=== PATIENT | male | born 1950 | race Caucasian/White ===

== ENCOUNTER → 2017-12-02 10:07 | Outpatient (CLI) | payer MEDICARE, OTHER, SELFPAY ==
[2017-12-02 11:55] LABS: Hematocrit 41.5 % (40-54); Hemoglobin 13.6 g/dl (13.0-16.5); Mean Corp Hgb Conc 32.8 g/gl (32-36); Mean Corpuscular Volume 91.6 fL (80-94); Platelet Count 209 K/mm3 (150-450); RBC Distribution Width CV 12.6 % (11.6-14.6); Red Blood Count 4.53 M/mm3 (4.6-6.2); White Blood Count 4.4 K/mm3 (4.4-11.0)
[2017-12-02 11:56] LABS: Scan Indicated on CBC? Y/N NO
[2017-12-02 12:12] LABS: Anion Gap 8 (5-15); BUN 17 mg/dL (7-18); BUN/Creat Ratio 20.7 RATIO (10-20); Calcium,Total 9.1 mg/dL (8.5-10.1); Chloride 105 mmol/L (98-107); Creatinine, Serum 0.82 mg/dL (0.70-1.30); EST Glomerular Filtration Rate 100 mL/min (>60); Est Glom Filt Rate - Afr Amer 121 mL/min (>60); Glucose 87 mg/dL (74-106); Potassium 4.1 mmol/L (3.5-5.1); Sodium Level 141 mmol/L (136-145)
== END ==
PROVIDERS: Family Provider Family Medicine; PCP Family Medicine; Visit Provider Orthopaedic Surgery
DX: Z01.818 Encounter for other preprocedural examination (principal)
CPT/HCPCS: 36415; 80048; 85027

== ENCOUNTER 2023-09-26 10:58 | Observation (INO) | payer MEDICARE, OTHER, SELFPAY ==
--- NOTE | 2023-09-02 09:19 | EKG12_ITS ---
Test Reason : PRE OP Blood Pressure : / mmHG Vent. Rate : 057 BPM Atrial Rate : 057 BPM P-R Int : 172 ms QRS Dur : 096 ms QT Int : 440 ms P-R-T Axes : 072 084 062 degrees QTc Int : 428 ms Sinus bradycardia Otherwise normal ECG Confirmed by SYL REN, ROGELIO ([id number]), newspaper copy editor CARMELLA MIDDLETON ([id number]) on 09/07/2023 12:19:23 PM Referred By: BENJIE Confirmed By:ROGELIO STREETER MD
[2023-09-02 10:48] LABS: Absolute Lymphocyte Count 1.31 X10^3/uL (0.83-4.51); Absolute Neutrophil Count 2.4 X10^3/uL (2.0-7.7); Basophil# 0.05 X10^3/uL; Basophil% 1.1 % (0-1); Eosinophil# 0.22 X10^3/uL; Eosinophils% 4.7 % (0-5); Hematocrit 40.5 % (40-54); Hemoglobin 13.4 g/dL (13.0-16.5); Lymphocyte # 1.31 X10^3/ul (0.83-4.51); Mean Corp Hgb Conc 33.1 g/dL (32-36); Mean Corpuscular Hgb 29.8 pg (27.0-32.0); Mean Corpuscular Volume 90.2 fL (80-94); Mean Platelet Vol. 9.4 fl (6.2-12.0); Monocyte# 0.66 X10^3/uL; Monocyte% 14.1 % (0-10); NRBC Flagged by Analyzer 0 % (0-5); Neutrophil # 2.43 X10^3/uL (2.7-7.7); Neutrophil % 51.9 % (47-70); Platelet Count 244 K/mm3 (150-450); RBC Distribution Width CV 12.2 % (11.6-14.6); RBC Distribution Width SD 40.2 fl (35.1-43.9); Red Blood Count 4.49 M/mm3 (4.6-6.2); White Blood Count 4.7 K/mm3 (4.4-11.0)
[2023-09-02 11:19] LABS: Anion Gap 3 (5-15); BUN 14 mg/dL (7-18); BUN/Creat Ratio 16.5 RATIO (10-20); Chloride 105 mmol/L (98-107); Creatinine, Serum 0.85 mg/dL (0.70-1.30); EST Glomerular Filtration Rate 95 mL/min (>60); Est Glom Filt Rate - Afr Amer 114 mL/min (>60); Glucose 107 mg/dL (74-106); Magnesium 2.4 mg/dL (1.6-2.6); Sodium Level 141 mmol/L (136-145)
[2023-09-02 11:45] LABS: Hemoglobin A1c 5.2 % (3.8-5.6)
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
[2023-09-26] VITALS (13 sets, daily range): BP systolic 118–155; BP diastolic 67–85; PULSE 49–80; RESP 11–18; TEMP 35.9–36.8; O2SAT 97–100; BMI 23.0
[2023-09-26] MEDS: Magnesium 1 GM over 15 mins IV (06:00)
[2023-09-26] MEDS: Celecoxib 200 MG Capsule 400 MG PO (06:24)
[2023-09-26] MEDS: Gabapentin 600 MG Tablet PO (06:24)
[2023-09-26] MEDS: Acetaminophen 500 MG Tablet 1000 MG PO ×3 (06:24→23:07)
[2023-09-26] MEDS: Lactated Ringers 1,000 ML 999 ML IV (06:25)
[2023-09-26] MEDS: dexAMETHasone 10 MG/ML Vial IV (07:30)
--- NOTE | 2023-09-26 07:30 | HIP_PTH ---
PATIENT: CELINE BEYER LOC: [facility]3 U#:[id number] AGE/SX: 72/M ROOM: NH313 RE09/26/[address]: Dr. Nilay Diaz DO : 1950 BED: 1 DIS: 09/27/2023 SPEC #: [id number] RECD: 09/26/23 09:57 STATUS: LAURA REUte #: [id number] JYOTI: 09/26/23 07:[address]: Nilay Diaz DEPT: SURGICAL PATHOLOGY RECD BY: Barb Dougherty ENTERED: 09/26/23 10:57 SP TYPE: TOTAL HIP OTHR DR: Dr. Andre Manriquez MD Tissues: Hip, NOS Procedures: Decalcification bone/plaque Surgery Specimen Level IV HEADER OPERATION: ERAS, Right total hip arthroplasty posterior approach PRE-OP DIAGNOSIS: Right hip moderate to severe osteoarthritis TISSUE SUBMITTED: Right hip bone and tissue MICROSCOPIC DIAGNOSIS Right hip bone and soft tissue, total hip replacement/resection: Femoral head with degenerative osteoarthritic changes. Fragments of fibroconnective tissue and reactive synovial tissue. CONNER:dominga 09/29/2023 MICROSCOPIC DESCRIPTION Slides are reviewed. GROSS DESCRIPTION Received is one container labeled with the patient's name and designated bone and soft tissue right hip. The specimen consists of a nava femoral head with portion of femoral neck. The femoral head measures 5.0 x 5.0 x 5.0 cm and the femoral neck measures up to 1.6 cm in length. The articular surface displays prominent osteophyte formation, eburnation and bone erosion. Also present in the specimen container are multiple irregular fragments of bone reamings and pink-yellow soft tissue measuring in aggregate 9.0 x 9.0 x 2.0 cm. Beveling Machine Operator sections are submitted in two cassettes after decalcification as follows: 1?bone reamings and soft tissue, 2 - bone. / CONNER:dominga 09/26/2023 TC:5 CPT: 01868, 50573
[2023-09-26] MEDS: Cefazolin 2 GM in 0.9% Normal Saline (100mL Bag) 100 ML IV (07:52)
[2023-09-26] MEDS: TXA 1000mg in NS100 100ml (IVPB at Incision) 660 MG IV (07:57)
[2023-09-26 08:23] LABS: Bedside Glucose 95 mg/dL (74-106)
[2023-09-26] MEDS: JPS (Morphine 10mg/ml) OPERA.SITE (09:06)
[2023-09-26] MEDS: TXA 1000mg in NS100 100ml (IVPB at Closure) 660 MG IV (09:07)
--- NOTE | 2023-09-26 09:52 | PCM.OPRPT ---
Report of Operation Date of Procedure: 09/26/23 Pre-Operative Diagnosis: OA right hip Post-Operative Diagnosis: same Surgery/Procedure Performed:: Right THR Description of Surgical Findings:: Report of Operation Date of Procedure: 09/26/2023 Pre-Operative Diagnosis: OA [ right ] hip Post-Operative Diagnosis: same Surgery/Procedure Performed: [ right ] THR photography editor: Ursula Meadows PA-C Type of Anesthesia: spinal Anesthesiologist: Hari Guadarrama M.D. Specimen's removed: bone Estimated Blood Loss (mL): 35 cc Implants: Jeermy Accolade 2 size 6 stem, 52 mm Trilogy cluster hole cup, MDM liner, -2.5 femoral neck Surgical Indications: Patient has severe end-stage osteoarthritic changes in the [right ] hip. They have failed conservative measures including activity modification, anti-inflammatories, use of assistive devices. This to the point where the pain affects their ability to enjoy life and complete activities of daily living without discomfort. Patient has elected to undergo the above procedure Procedure Description: The patient was greeted in the preoperative area the [right ] hip was marked with surgical marker preoperative antibiotics administered. The patient was then taken to or suite in stable condition. Preoperative tranexamic acid was also utilized. Once the patient was placed in the supine position on the operating room table and once adequate anesthesia was obtained they were then placed in the lateral decubitus position with the surgical hip facing the field. All bony prominences were well-padded. A commercial hip position was utilized. The appropriate extremity was then prepped and draped in usual sterile fashion. Ioban was placed on the skin. Surgical timeout was performed and surgery was commenced. A standard posterior approach to the hip was then performed. Incision was planned and carried out with a #10 blade scalpel. Dissection was then carried length of the incision to the IT band which was split proximally and distally. A Charnley retractor was then placed for soft tissue retraction exposing the piriformis. A standard posterior capsulotomy was performed. Severe eburnation of bone was noted and periarticular osteophytes were identified consistent with severe end-stage osteoarthritis. A femoral neck osteotomy guide was used to columba the proximal femur. A femoral osteotomy was then created approximately 1 fingerbreadth above the lesser trochanter. This was measured and placed on the back table. Once this was complete acetabular retractors were placed anteriorly and posteriorly. Labrum was then removed from the acetabulum exposing the entire cup of the acetabulum. Sequential reaming was then commenced and the acetabulum was medialized and sequentially widened in order to accommodate appropriate size cup. The acetabular cup was then impacted into position to the appropriate depth referencing approximately [40 ] anteversion and [40 ]of inclination. Excellent purchase was obtained. An appropriate size MDM liner was then placed. Attention was then turned to the femoral preparation. The hip was placed in the 90/90 position and a lateralizing box osteotome was utilized. Femoral starting awl was used followed by sequential broaching to the appropriate size. Excellent purchase was obtained with the stem no stem subsidence and excellent rotational stability was confirmed. A calcar reamer was then used in the trial head neck was placed on the broach. The hip was then located and taken through full range of motion flexion internal and external rotation as well as extension. Excellent stability was noted no impingement was identified of the components and leg lengths appear to be appropriate. The hip was at this point dislocated and the trial femoral components were removed. The final femoral stem was then implanted and impacted to the appropriate depth. Again excellent purchase was obtained no stem subsidence or rotational instability was noted. The hip was once again trialed and confirmation of leg length and stability was performed. Soft tissue tension also appeared to be appropriate. At this point the hip was redislocated and the trunnion was cleaned and dried meticulously in the appropriate size MDM femoral head was placed on the clean dry trunnion using a 12/14 Wyatt taper. The hip was once again relocated and again taken through full range of motion. I did inject a cocktail of postoperative pain medication in the deep and superficial tissues. Copious irrigation was performed. Anatomic closure of the piriformis tendon was performed through drill holes in the greater trochanter. A #1 Vicryl 0 Vicryl was utilized in subcutaneous tissue and surgical cody were placed in the skin. A well-padded nonadherent dressing was applied. Patient was taken to PACU in stable condition. No complications were identified. Will follow standard postop protocol for total hip arthroplasty. My assistant professor of nursing played a vital role in the procedure beginning with positioning, holding retraction of soft tissues, positioning the leg to optimize visualization during the procedure and assisting with wound closure. Post-op Plan: DVT ppx; ASA 81 mg BID, thigh high compression stockings Follow up: in office in 2 weeks for wound check PT: to start POD #0 at hospital, outpatient PT should be arranged. Preoperative antibiotic: Ancef 2 grams IV Nilay Diaz DO Surgeon: Nilay Diaz photography editor: Ursula Meadows Type of Anesthesia: Spinal Anesthesiologist: Hari Guadarrama Estimated Blood Loss (mL): 35cc Fluids Replaced: 1000 cc crystalloid Admit VTE Documentation VTE Present on Admission: No VTE Mechan Device Prophylaxis: SCD's and Thigh High ASHLEY Hose VTE Pharm Prophylaxis ordered?: Yes
--- NOTE | 2023-09-26 10:00 | RAD_ITS ---
STUDY: X-RAY - PELVIS AND RIGHT HIP REASON FOR EXAM: Male, 72 years old. Post Op -- AP both hips on single joanna/lateral of op hip PACU TECHNIQUE: 2 views of the pelvis and hip. COMPARISON: None. FINDINGS: Status post right total hip replacement. There is good alignment. RAD/Hip Min 2 Views (Portable) IMPRESSION: Status post right total hip replacement. There is good alignment. Electronically Signed: Gino Galan MD at 10:18 EST ,
[2023-09-26] MEDS: Lactated Ringers 1,000 ML 75 ML IV (10:31)
[2023-09-26] MEDS: Cefazolin 1 GM/50 ML BAG IV ×2 (15:27→23:07)
[2023-09-26] MEDS: 0.9% Saline Lock 10 ML Syringe IV (15:27)
[2023-09-26] MEDS: oxyCODONE 5 MG Tablet PO (15:31)
[2023-09-26] MEDS: Aspirin 81 MG TAB.CHEW PO (17:50)
[2023-09-26] MEDS: Senna/Docusate Sodium 1 Tablet 2 TABLET PO (23:08)
[2023-09-27] MEDS: oxyCODONE 5 MG Tablet PO ×3 (02:52→13:46)
[2023-09-27 03:00] VITALS: BP 132/70; PULSE 54; RESP 16; TEMP 36.8; O2SAT 98
[2023-09-27] MEDS: Acetaminophen 500 MG Tablet 1000 MG PO ×2 (04:06→13:45)
[2023-09-27 06:51] VITALS: BP 113/80; PULSE 60; RESP 16; TEMP 37.1; O2SAT 98
[2023-09-27 08:35] LABS: Hematocrit 31.9 % (40-54); Hemoglobin 10.8 g/dL (13.0-16.5); Mean Corp Hgb Conc 33.9 g/dL (32-36); Mean Corpuscular Hgb 30.3 pg (27.0-32.0); Mean Corpuscular Volume 89.4 fL (80-94); Mean Platelet Vol. 9.5 fl (6.2-12.0); Platelet Count 200 K/mm3 (150-450); RBC Distribution Width CV 12.3 % (11.6-14.6); RBC Distribution Width SD 39.9 fl (35.1-43.9); Red Blood Count 3.57 M/mm3 (4.6-6.2); White Blood Count 11.6 K/mm3 (4.4-11.0)
[2023-09-27 09:12] LABS: Anion Gap 2 (5-15); BUN 14 mg/dL (7-18); BUN/Creat Ratio 18.3 RATIO (10-20); Calcium,Total 8.5 mg/dL (8.5-10.1); Chloride 106 mmol/L (98-107); Creatinine, Serum 0.76 mg/dL (0.70-1.30); EST Glomerular Filtration Rate 106 mL/min (>60); Est Glom Filt Rate - Afr Amer 129 mL/min (>60); Estimated Creatinine Clearance 67.75 ml/min; Glucose 126 mg/dL (74-106); Potassium 4.2 mmol/L (3.5-5.1); Sodium Level 138 mmol/L (136-145)
[2023-09-27] MEDS: Aspirin 81 MG TAB.CHEW PO (09:22)
[2023-09-27] MEDS: Senna/Docusate Sodium 1 Tablet 2 TABLET PO (09:22)
--- NOTE | 2023-09-27 12:06 | PCM.PN.ORT ---
Subjective Subjective Patient is s/p right sided total hip arthroplasty with Dr. Diaz 09/26/2023. Patient resting comfortably in bed. Rates pain to/ 10 at rest. With movement 5/10. States taking Tylenol and oxycodone as needed and ice help to relieve pain. Patient has been up with therapy. Walking with the assit of a walker. Afebrile, no chest pain, shortness of breath, negative calf pain/ erythema, and no other signs of DVT. Objective Data Objective Data Vital Signs: Vital Signs Temp Pulse Resp BP Pulse Ox O2 Del Method O2 Flow Rate 98.8 F 60 16 113/80 98 Room Air 4 09/27/23 06:51 09/27/23 06:51 09/27/23 06:51 09/27/23 06:51 09/27/23 06:51 09/27/23 06:51 09/26/23 11:25 Oxygen Flow Rate (L/min) 4 Oxygen Delivery Method Room Air Weight: 70.8 kg Body Mass Index (BMI) 23.0 Intake & Output: Intake and Output for Last 24 Hours 09/25/23 09/26/23 09/27/23 23:59 23:59 23:59 Intake Total 4982 / 4982 Output Total 125 / 125 Balance 4857 / 4857 Lab / Micro Data 09/27/23 07:30 09/27/23 07:30 Labs: Laboratory Results - last 24 hr 09/27/23 07:30: WBC 11.6 H, RBC 3.57 L, Hgb 10.8 L, Hct 31.9 L, MCV 89.4, MCH 30.3, MCHC 33.9, RDW Std Deviation 39.9, RDW Coeff of Wilber 12.3, Plt Count 200, MPV 9.5, Sodium 138, Potassium 4.2, Chloride 106, Carbon Dioxide 30.0, Anion Gap 2 L, BUN 14, Creatinine 0.76, Estim Creat Clear Calc 67.75, Est GFR (MDRD) Af Amer 129, Est GFR (MDRD) Non-Af 106, BUN/Creatinine Ratio 18.3, Glucose 126 H, Calcium 8.5 Micro: Microbiology 09/02/23 09:29 Swab (Method) Nasal Screen MRSA/MSSA - Final Physical Exam Narrative Patient resting comfortably in bed No signs of acute distress Satting well on room air Limb is warm to touch, Sensation intact throughout entire lower extremity, including saphenous, sural, superficial and deep peroneal, and tibial distribution. DP/PT pulses bounding. Dorsiflexion plantarflexion strength 5/5 Dressing clean dry intact. Calf nontender to palpation, no erythema, no edema. Negative Homans Assessment & Plan Assessment/Plan (1) S/P total hip arthroplasty: PLAN: Plan 1. Will continue PT today. Weightbearing as tolerated 2. plan for discharge this afternoon following PT 3. Patient will follow up for post op appointment as previously scheduled in 2 weeks in office 4. Patient has outpatient PT appointment in this week as previously scheduled 5. WBC 11.6 acute reactive leukocytosis: secondary to pre operative decadron. no acute systemic signs of infection. will monitor, and likely self resolve. 6. H/H 10.8/31.9: post operavtive anemia secondary to acute blood loss intraoperatively. Patient is asymptomatic at this time. No intraoperative complications. will continue to monitor. no acute interventions. 7. DVT prophylaxis : Aspirin 81 mg twice daily 8. Pain control: patient instructed to take tylenol 500mg 2 tablets TID. and oxycodone 1-2 tablets every 4-6 hours only as needed for pain control. 9. ok to remove post op dressing. post op day 5
--- NOTE | 2023-09-27 12:24 | DCINST_ITS ---
Discharge Instructions Diet Discharge Diet: No restrictions Activity Discharge Activity: Return to Normal Activity and May Shower Weight Bearing Status: Weight bearing as tolerated, Full weight bearing, Partial weight bearing, Toe touch weight bearing and No weight bearing Dressing / Incision Call your doctor if your incision/area has: Continuous Slow Oozing, Sudden Increased Bleeding, Increased Pain/ Swelling, Increased Redness, Foul Smelling Discharge and Swelling at the incision site Call your doctor if you observe: Fever of 101 or Higher, Inability to have a bowel movement, Shortness of breath, Chest pain and Calf discomfort Remove Dressing in: 5 days Cleanse incision/area with: Soap & Water and Keep Dressing Clean & Dry Follow Up Care When: Follow-up in office postop 2 weeks as previously scheduled. Test Results: Test results from this visit will be discussed in further detail at your follow- up appointment, if applicable. Discharge Plan Admission Admit Date/Time: 09/26/23 10:58 Attending Provider: Nilay Diaz Primary Care Provider: Andre Manriquez Discharge Orders/Prescriptions Prescriptions: New acetaminophen 500 mg Tablet 1,000 mg PO Q8 Qty: 180 0RF aspirin 81 mg Tablet,Chewable 81 mg PO BIDCM 30 Days Qty: 60 0RF oxycodone 5 mg Tablet 5 - 10 mg PO .q4-6 hrs prn PRN (Reason: Pain Score 4-10) 7 Days Qty: 60 0RF sennosides-docusate sodium [Stool Softener-Stimulant Laxat] 8.6-50 mg Tablet 2 tab PO BID Qty: 10 0RF No Action NK Other Ambulatory Orders: 12 Lead EKG (Routine) Timeframe: [id number] Location: None Selected Ordered By: Dr. Nilay Diaz Disposition Disposition (needs filled in before D/C Order can be placed): Home, Self Care
--- NOTE | 2023-09-27 12:54 | CASEMGMT ---
Met with patient to complete WISEMAN form. WISEMAN form explained to patient who voiced understanding and signed form. Original form placed in pt?s chart and copy provided to?patient. Tali Knight, Discharge Planning Asst
--- NOTE | 2023-09-27 13:10 | CASEMGMT ---
RAI GRAFF Assessment: Face to Face with pt for initial transition planning/care coordination assessment. RN PRERNA introduced self and role at [facility], pt voices understanding and consents to assessment. Pt is A&O x4 and answers all questions appropriately at this time. Pt sitting up in chair eating lunch in no distress with at bedside. Care providers, pharmacy, and demographics verified/updated. Admitting Dx: R total hip arthroplasty posterior approach PCP:Mitra Specialists:dana Diaz [facility]acy[facility] Pres[facility] Benefit: yes LNOK: Magda Rosario, ; Carlo Rosario, son Living Arrangements: Pt lives with in a single story home with a ramp to enter. Pt reports he is I in ADL's and denies concerns at home. Transportation: Pt drives self and denies concerns with transportation. Pt will transport pt until he is able to drive again. DME:w/c, cane, FWW, raised toilet seat, toilet side rails HHC/SNF: Denies hx of Pt states no concerns with going home at time of dc. Pt has outpt therapy set up at [facility] on Tuesday. Pt states no further concerns/needs. CM to follow. Advised pt to ask CM if any further question/concerns/needs arise, voices understanding. Pt Goal: Home with outpt therapy already set up Plan: Home with outpt therapy already set up
[2023-09-27 13:57] VITALS: BP 123/67; PULSE 63; RESP 18; TEMP 37.2; O2SAT 97
--- NOTE | 2023-09-27 14:25 | PHA.DC.MR.R ---
Pharmacy [facility] Med Reconciliation Pharmacy Service has performed discharge medication reconciliation for this patient. Medication education papers prepared, patient was discharge before I was able to mitochondrial disorders counselor. Medications reviewed. The patient's discharge medication list was reviewed for discrepancies and discrepancies were resolved. Medications at Discharge Home Medications NK 08/31/23 acetaminophen 500 mg tablet 1,000 mg (2 x 500 mg) PO Q8 #180 tabs 09/27/23 aspirin 81 mg chewable tablet 81 mg PO BIDCM 30 days #60 tabs 09/27/23 oxycodone 5 mg tablet 5 - 10 mg (1 - 2 x 5 mg) PO .q4-6 hrs prn PRN Pain Score 4-10 7 days #60 tabs 09/27/23 sennosides 8.6 mg-docusate sodium 50 mg tablet (Stool Softener-Stimulant Laxative) 2 tab PO BID #10 tabs 09/27/23
== END 2023-09-27 14:10 | disposition home or self-care (01) ==
LOC: SDC 11:02 → MS3 11:02
PROVIDERS: Admitting Provider Orthopaedic Surgery; PCP Family Medicine; Referring Provider Orthopaedic Surgery; Visit Provider Orthopaedic Surgery
PROC: 0SR90JZ Replacement of Right Hip Joint with Synthetic Substitute, Open Approach (ICD-10-PCS; CPT 27130; principal; 2023-09-26 07:05)
DX: M16.11 Unilateral primary osteoarthritis, right hip (principal); Z87.891 Personal history of nicotine dependence; G25.81 Restless legs syndrome
CPT/HCPCS: 27130; 01214; 36415; 73502; 80048; 82962; 83036; 83735; 85025; 85027; 87077; 87081; 88305; 88311; 93005; 94668; 96361; 96365; 96366; 97162; 97166; 99221; C1776; J7120; A4216; G0378; J2405; J3475